=== PATIENT | female | born 1955 | race Caucasian/White ===

== ENCOUNTER 2018-09-01 10:10 | Day surgery (SDC) | payer OTHER ==
[2018-09-01] MEDS ORDERED: LIDOCAINE 1% MDV (10MG/ML) 20ML VIAL SQ ONE (10:11)
--- NOTE | 2018-09-03 08:30 | Operative Note ---
DATE OF SURGERY: 09/01/2018 PREOPERATIVE DIAGNOSIS: Left carpal tunnel syndrome. POSTOPERATIVE DIAGNOSIS: Left carpal tunnel syndrome. OPERATION: Left carpal tunnel release. Staff Surgeon: Nacho Solano MD Anesthesia: Local. Preparation: Chloraprep. Individual Considerations: None. PROCEDURE: The patient was taken to the operating room and placed supine on the operating room table. Her left arm was prepped and draped in the usual fashion. The patient had 2% lidocaine with epinephrine infiltrated along longitudinal wrist crease volarly. Limb was elevated, tourniquet was inflated to 250 mmHg. Incision was made along the longitudinal wrist crease, then stopping just short of the flexion crease slightly on a 45-degree angle ulnarly. Sharp dissection carried down through skin and subcutaneous tissue. Small veins were coagulated with a Bovie. Sharp dissection carried down through the palmar fascia throughout the small adductor brevis and then through the transverse metacarpal fascia distally to the superficial arch and then proximally to the antebrachial fascia. The median nerve looked contused and compressed but otherwise intact. No tumors were present. After irrigation, tourniquet was let down, hemostasis was obtained with a Bovie. The skin was then approximated with interrupted 4-0 nylon in a vertical mattress fashion and sterile bulky compressive hand dressing was applied. The patient tolerated procedure well. Needle and sponge counts were correct. Estimated blood loss was minimal and he was taken back to recovery in good condition. There were no complications. [facility]
== END 2018-09-01 13:00 | disposition home or self-care (01) ==
LOC: SUR 10:10
PROVIDERS: ATTEND Orthopaedic Surgery
DX: G56.02 Carpal tunnel syndrome, left upper limb (principal)